=== PATIENT | female | born 1990 | race Caucasian/White ===

== ENCOUNTER 2021-09-05 14:36 | Emergency (ER) | payer SELFPAY ==
[~2021-09-05] VITALS: Ht 162.6 cm; Wt 78.0 kg
[2021-09-05 16:02] LABS: URINE BILIRUBIN - DIPSTICK NEGATIVE (NEGATIVE); URINE BLOOD DIPSTICK NEGATIVE (NEGATIVE); URINE COLOR YELLOW; URINE GLUCOSE - DIPSTICK NEGATIVE (NEGATIVE); URINE KETONE NEGATIVE (NEGATIVE); URINE LEUK ESTERASE NEGATIVE (NEGATIVE); URINE PH 5.5 (4.5-8.0); URINE PROTEIN - DIPSTICK NEGATIVE (NEG-TRACE); URINE SPECIFIC GRAVITY 1.015; URINE UROBILINOGEN - DIPSTICK 0.2 E.U./dL (0.2)
[2021-09-05 16:03] LABS: HEMATOCRIT 36.3 % (37.0-47.0); HEMOGLOBIN 12.5 g/dl (12.0-16.0); IMMATURE GRANULOCYTES 0.3 % (0.0-5.0); MEAN CORPUSCULAR HGB 30.6 pG CALC (26.0-32.0); MEAN CORPUSCULAR HGB CONC 34.4 g/dL CAL (32.0-36.0); NEUT# 6.6 thou/uL (2.00-7.15); RED BLOOD COUNT 4.08 mill/uL (4.20-5.60); RED CELL DISTRI WIDTH 12.7 % (11.5-15.5)
[2021-09-05 16:08] LABS: URINE NITRITE - DIPSTICK NEGATIVE (Negative)
[2021-09-05 16:22] LABS: ALBUMIN 3.5 g/dL (3.2-5.0); ALKALINE PHOSPHATASE 89 u/l (38-126); ANION GAP 14 (6-22 (CALC)); BILIRUBIN, TOTAL 0.7 mg/dL (0.0-1.4); BUN 15 mg/dL (7-17); BUN/CREATININE RATIO 22 (12-20 (CALC)); CARBON DIOXIDE 20 mmol/l (22-30); CHLORIDE 106 mmol/l (95-108); CREATININE 0.7 mg/dL (0.5-1.0); GFR > 60 ML/MIN (>=60 (CALC)); GFR FOR AFR.AMER. > 60 ML/MIN (>=60 (CALC)); POTASSIUM 3.7 mmol/l (3.5-5.1); SGOT/AST 190 u/l (14-36); SODIUM 137 mmol/l (137-146); TOTAL PROTEIN 6.3 g/dL (6.3-8.2)
[2021-09-05 17:23] VITALS: BP 122/62
[2021-09-05] MEDS ORDERED: NAPROXEN EC500 MG PO (17:57)
== END 2021-09-05 18:30 | disposition home or self-care (01) | DRG 552 ==
LOC: ED 14:36
DX: M54.50 Low back pain, unspecified (principal); F15.10 Other stimulant abuse, uncomplicated; I10 Essential (primary) hypertension; J45.909 Unspecified asthma, uncomplicated; F31.9 Bipolar disorder, unspecified; Z87.442 Personal history of urinary calculi

== ENCOUNTER 2023-01-30 16:58 | Observation (INO) | payer MEDICAID ==
[~2023-01-30] VITALS: Ht 162.6 cm; Wt 83.4 kg
[~2023-01-30 16:58] MED LIST: NAPROXEN EC500 MG PO
--- NOTE | 2023-01-30 17:06 | NUR ---
PT ARRIVED VIA EMS WITHOUT PANTS AND UNDERWEAR, EMS PLACED A SLING & SWATH TO LEFT WRIST, PT C/O 10/10 PAIN TO LEFT WRIST AND SAYS THERE IS A CRACK PIPE STUCK IN HER THROAT. PT ASKING VEHEMENTLY FOR PAIN MEDICATION
--- NOTE | 2023-01-30 17:42 | NUR ---
VANCOMYCIN RUNNING, PT ASKED IF SHE COULD HAVE REST OF DILAUDID, TOLD PT THE MEDICATION WAS ALREADY WASTED.
--- NOTE | 2023-01-30 18:02 | NUR ---
REMINDED PT A URINE SAMPLE IS NEEDED AND INSTRUCTED ON USE OF CALL LIGHT. CALL LIGHT IN PATIENT'S LAP
[2023-01-30 18:09] LABS: BASO% 0.3 % (0-3); EOS% 0.8 % (0-8); HEMOGLOBIN 12.7 g/dl (12.0-16.0); IMMATURE GRANULOCYTES 0.2 % (0.0-5.0); LYMPH% 11.8 % (15-41); MEAN CELL VOLUME 91.3 fL CALC (80.0-100.0); MEAN CORPUSCULAR HGB 30.5 pG CALC (26.0-32.0); MEAN CORPUSCULAR HGB CONC 33.4 g/dL CAL (32.0-36.0); MONO% 5.3 % (2-13); NEUT# 10.22 thou/uL (2.00-7.15); NEUT% 81.6 % (42-76); RED BLOOD COUNT 4.16 mill/uL (4.20-5.60); RED CELL DISTRI WIDTH 14.4 % (11.5-15.5)
[2023-01-30 18:24] LABS: ALKALINE PHOSPHATASE 119 u/l (38-126); ANION GAP 12 (6-22 (CALC)); BUN 8 mg/dL (7-17); BUN/CREATININE RATIO 13 (12-20 (CALC)); CARBON DIOXIDE 23 mmol/l (22-30); CHLORIDE 101 mmol/l (95-108); CREATININE 0.6 mg/dL (0.5-1.0); GFR FOR AFR.AMER. > 60 ML/MIN (>=60 (CALC)); GFR OTHER RACES > 60 ML/MIN (>=60 (CALC)); POTASSIUM 3.5 mmol/l (3.5-5.1); SODIUM 132 mmol/l (137-146); TOTAL PROTEIN 6.6 g/dL (6.3-8.2)
[2023-01-30 18:28] LABS: BILIRUBIN, TOTAL 0.2 mg/dL (0.02-1.3); SGOT/AST 34 u/l (14-36)
--- NOTE | 2023-01-30 20:25 | NUR ---
PT IN ROOM ASLEEP. NO DISTRESS NOTED
[2023-01-30 21:07] LABS: URINE BILIRUBIN - DIPSTICK NEGATIVE (NEGATIVE); URINE BLOOD DIPSTICK NEGATIVE (NEGATIVE); URINE CLARITY CLEAR; URINE COLOR YELLOW; URINE GLUCOSE - DIPSTICK NEGATIVE (NEGATIVE); URINE KETONE TRACE mg/dL (NEGATIVE); URINE LEUK ESTERASE TRACE (Negative); URINE NITRITE - DIPSTICK NEGATIVE (Negative); URINE PROTEIN - DIPSTICK NEGATIVE (NEG-TRACE); URINE SPECIFIC GRAVITY >=1.030; URINE UROBILINOGEN - DIPSTICK 0.2 E.U./dL (0.2)
--- NOTE | 2023-01-30 22:26 | NUR ---
REPORT GIVEN TO HUBER WEEMS. CARE RELINQUISHED
--- NOTE | 2023-01-30 22:53 | NUR ---
DR RENTERIA CALLED FOR ADMISSION
--- NOTE | 2023-01-30 23:20 | NUR ---
ROOM ASSIGNMENT [id number]
--- NOTE | 2023-01-31 00:43 | NUR ---
REPORT CALLED TO [facility]
[2023-01-31 01:06] VITALS: BP 122/73
[2023-01-31] MEDS ORDERED: ZYPREXA PO (01:46)
--- NOTE | 2023-01-31 02:17 | NUR ---
JUSTIN ARRIVED TO FLOOR AT 0059, TRANSPORTED BY WHEELCHAIR, REPORT GIVEN BY NURSE DANK, PATIENT ALERT ORIENTED, DROWSY, STEADY GAIT, WALK TO THE BATHROOM TO PEE, PATIENT ORIENTED TO CALL LIGHT SYSTEM, C/O PAIN ON LEFT HAND WILL MECICATE, AWAITING PHARMACY TO VEIFY ORDER, ADMISSION ASSESSMENT COMPLETED, PATIENT NOTED EDEMA ON LEFT HAND AND OPEN WOUND ON LEFT PALM, SCRATCH PRATT ON UPPER ARM AND PUCTURE MITA ON RT HAND, PATIENT PROVIDED CHRIS AND DRINKS, CALL LIGHT IN REACH.
--- NOTE | 2023-01-31 03:27 | NUR ---
PARTIENT WALKING IN THE HALLWAY C/O THROBBING OFTHE LET HAND WILL MEDICATE.
[2023-01-31 03:38] VITALS: BP 136/92
[2023-01-31 06:14] VITALS: BP 140/87
[2023-01-31 15:11] VITALS: BP 121/72
[2023-01-31 18:59] VITALS: BP 129/80
--- NOTE | 2023-01-31 19:17 | NUR ---
SPOKE WITH CARDINAL TALK TO FRANCESCA ABOUT NO ORDERS FOR VANCO TROUGH SATTED WILL LIVE MESSAGE TO FACILITY PHARMACY.
--- NOTE | 2023-01-31 20:00 | NUR ---
REPORT GIVEN BY NURSE SHAY, PATIENT RESTING IN BED, C/O PAIN AND THROBBING OF LEFT HAND REQUESTING PAIN MEDICATION, PATIENT ALERT ORIENTED SALINE LOCK ON RFA, LUNG SOUNDS CLEAR NOT IN DISTRESS, ACTIVE BOWEL SOUNDS LBM 01/30 CALL LIGHT IN REACH.
--- NOTE | 2023-02-01 01:15 | NUR ---
PATIENT C/O PAIN THROBBING LEFT HAND MONICA MEDICATE.
[2023-02-01 04:54] VITALS: BP 120/76
--- NOTE | 2023-02-01 05:11 | NUR ---
paytient c/o anxiety prn ativan given.
[2023-02-01 05:17] LABS: BASO% 0.2 % (0-3); EOS% 1.2 % (0-8); HEMATOCRIT 38.8 % (37.0-47.0); HEMOGLOBIN 12.8 g/dl (12.0-16.0); IMMATURE GRANULOCYTES 0.1 % (0.0-5.0); LYMPH% 20.6 % (15-41); MEAN CELL VOLUME 94.4 fL CALC (80.0-100.0); MEAN CORPUSCULAR HGB 31.1 pG CALC (26.0-32.0); MONO% 8.4 % (2-13); NEUT# 6.25 thou/uL (2.00-7.15); NEUT% 69.5 % (42-76); RED BLOOD COUNT 4.11 mill/uL (4.20-5.60); RED CELL DISTRI WIDTH 14.5 % (11.5-15.5)
[2023-02-01 05:28] LABS: ANION GAP 10 (6-22 (CALC)); BUN 7 mg/dL (7-17); BUN/CREATININE RATIO 12 (12-20 (CALC)); CARBON DIOXIDE 25 mmol/l (22-30); CHLORIDE 104 mmol/l (95-108); CREATININE 0.6 mg/dL (0.5-1.0); GFR FOR AFR.AMER. > 60 ML/MIN (>=60 (CALC)); GFR OTHER RACES > 60 ML/MIN (>=60 (CALC)); MAGNESIUM 1.7 mg/dL (1.6-2.3); POTASSIUM 4.1 mmol/l (3.5-5.1); SODIUM 134 mmol/l (137-146)
[2023-02-01 06:14] VITALS: BP 119/77
--- NOTE | 2023-02-01 07:56 | NUR ---
S: MONA MCALLISTER is a 32 F who presents with CELLULITIS. She has a history of ANT BITES AND DRUG USE. All medications in patient's chart were reviewed. O: VS: BP 119/77 , P 87, RR 20,T 97.2 W 83kg, HT 64IN, Scr=0.6,CrCl= >90ml/min A: Blood culture is pending P: Patient is on ZOSYN 3.375GM Q6H . Vancomycin ordered for pharmacy to dose. Start Vancomycin 1 GRAM IV Q8H. Vancomycin trough is drawn before the 4th dose on 02/01/23 @1030. Vancomycin goal trough is between <10-15 mcg/ml>. Pharmacy will follow and or advise on antibiotics use as needed. SHRADDHA MILLER
--- NOTE | 2023-02-01 08:00 | NUR ---
PT RESTING IN BED EATING BREAKFAST. ASSESSMENT COMPLETED. IV INFILTRATED. ICE PACK PROVIDED. NEW IV ESTALBLISHED 20G RFA. EDUCATED PT IN PLAN OF CARE. PT INDICATED UNDERSTANDING. FALL/SAFTEY PRECAUTION I NPLACE. CALL LIGHT WITHIN REACH
--- NOTE | 2023-02-01 12:20 | NUR ---
PT CRYING IN BED STATING LEFT ARM IS IN PAIN. MEDICATED SEE EMAR REPSOTIONED. FALL/SAFTEY PRECAUTION IN PLACE. CALL LIGHT WITHIN REACH
--- NOTE | 2023-02-01 14:40 | NUR ---
IV ESTABLISHED 20G RAC PT TOLERATED WELL FALL/SAFTEY PRECAUTION IN PLACE, CALL QI PRATER REACH
[2023-02-01 15:25] VITALS: BP 116/70
--- NOTE | 2023-02-01 16:00 | NUR ---
PT VERY ANXIOUS/ RESTLESS IN ROOM. STATING " I NEED ALL THE DEMEROL" COMFORT MEASURES PROVIDED. JUICE/WARM BLANKET. PT REMAINS AGITATEDE. MEDICATED SEE EMAR
--- NOTE | 2023-02-01 16:20 | NUR ---
PT STATES PAIN IN LEFT ARM. REPSOTIONED MEDICATED SEE EMAR FALL/SAFTEY PRECAUITION IN PLACE. CALL LIGHT WITHIN REACH.
--- NOTE | 2023-02-01 16:51 | NUR ---
S: MONA MCALLISTER is a 32 F who presents with cellulitis. All medications in patient's chart were reviewed. O: VS: BP 116/70, P74,T 97.2 W 83.4 kg, HT 162.6cm, Scr=0.6,CrCl= 79ml/min A: Blood culture is pending. P: Patient is on Zosyn 3.375 gm Q6H IV. Vancomycin ordered for pharmacy to dose. Increase Vancomycin to 1.5g IV Q8H. Vancomycin trough is drawn before the 4th dose at 10:30 02/02/2023. Vancomycin goal trough is between 10-15 mcg/ml. Pharmacy will follow and or advise on antibiotics use as needed.
--- NOTE | 2023-02-01 19:43 | NUR ---
BEDSIDE REPORT RECEIVED FROM OFFGOING NURSE. PATIENT RESTING IN BED AND C/O PAIN TO LEFT ARM. ARM POSITIONED ON PILLOWS FOR COMFORT. HEAD TO TOE ASSESSMENT COMPLETED. CALL IGHT AND PERSONAL ITEMS WITHIN REACH.
[2023-02-01 20:39] VITALS: BP 121/73
--- NOTE | 2023-02-02 00:28 | NUR ---
PATIENT RESTING IN BED WITH EYES CLOSED. EASILY AROUSED. MEDICATED FOR PAIN PER REQUEST. CALL LIGHT AND PERSONAL ITEMS WITHIN REACH.
--- NOTE | 2023-02-02 03:22 | NUR ---
PATIENT RESTING IN BED WITH EYES CLOSED. DECLINES TO HAVE BP TAKEN TIMES 2 ATTEMPTS. PATIENT STATING THAT "MY BLOOD PRESSURE IS OK". PATIENT EDUCATED AND THIS CHARTER BOAT OPERATOR OFFERED TO CHECK BP AT SITE OTHER THAN LEFT UPPER EXTREMITY. PATIENT CONTINUED TO DECLINE. CALL LIGHT WITHIN REACH.
[2023-02-02 05:41] LABS: BASO% 0.5 % (0-3); EOS% 2.4 % (0-8); HEMATOCRIT 40.2 % (37.0-47.0); IMMATURE GRANULOCYTES 0.2 % (0.0-5.0); LYMPH% 23.5 % (15-41); MEAN CELL VOLUME 94.6 fL CALC (80.0-100.0); MEAN CORPUSCULAR HGB 30.6 pG CALC (26.0-32.0); MEAN CORPUSCULAR HGB CONC 32.3 g/dL CAL (32.0-36.0); MONO% 8.1 % (2-13); NEUT# 5.75 thou/uL (2.00-7.15); NEUT% 65.3 % (42-76); RED BLOOD COUNT 4.25 mill/uL (4.20-5.60); RED CELL DISTRI WIDTH 14.3 % (11.5-15.5)
[2023-02-02 05:57] LABS: ALBUMIN 3.3 g/dL (3.2-5.0); ALKALINE PHOSPHATASE 93 u/l (38-126); ANION GAP 10 (6-22 (CALC)); BUN 7 mg/dL (7-17); BUN/CREATININE RATIO 10 (12-20 (CALC)); CARBON DIOXIDE 25 mmol/l (22-30); CHLORIDE 106 mmol/l (95-108); CREATININE 0.7 mg/dL (0.5-1.0); GFR FOR AFR.AMER. > 60 ML/MIN (>=60 (CALC)); GFR OTHER RACES > 60 ML/MIN (>=60 (CALC)); MAGNESIUM 1.8 mg/dL (1.6-2.3); SGOT/AST 21 u/l (14-36); SODIUM 136 mmol/l (137-146); TOTAL PROTEIN 6.3 g/dL (6.3-8.2)
[2023-02-02 06:10] LABS: BILIRUBIN, TOTAL 0.3 mg/dL (0.02-1.3)
--- NOTE | 2023-02-02 06:35 | NUR ---
PATIENT DECLINED TO HAVE BP TAKEN THIS AM. CONTINUES TO REST WITH EYES CLOSED. CALL LIGHT WITHIN REACH.
--- NOTE | 2023-02-02 06:48 | NUR ---
patient refused vital signs.
--- NOTE | 2023-02-02 08:00 | NUR ---
PT IN BED WITH HOB, ALERT AND ORIENTED X 3. PT C/O PAIN AT 4/10 ON PAIN SCALE TO LEFT ARM, PRN MEDICATION PT IS REQUESTING NOT DUE FOR ANOTHER HOUR, PT IS AWARE. IV SITE TO RAC INTACT AND CLEAN. PT AMBULATES TO BATHROOM FOR TOILETING NEEDS. PT HAS CALL LIGHT WITHIN REACH AND SAFETY MEASURES IN PLACE.
[2023-02-02] MEDS ORDERED: TRAMADOL HCL50 MG PO (09:25)
[2023-02-02] MEDS ORDERED: VIBRAMYCIN100 M2 PO (09:25)
[2023-02-02] MEDS ORDERED: AMOX/K CLAV875 M1 PO (09:25)
--- NOTE | 2023-02-02 12:02 | NUR ---
S: MONA MCALLISTER is a 32 F who presents with cellulitis. All medications in patient's chart were reviewed. O: VS: BP 121/73 MMHG, P72 BPM, RR18 BPM,T 97F W 83.4kg, HT162.6cm, Scr=0.6,CrCl= 79 ml/min A: Blood culture is pending. P: Patient is on Zosyn 3.375gm Q6H IV. Vancomycin ordered for pharmacy to dose. Continue Vancomycin 1.5GM IV Q8H. Vancomycin trough is drawn before the dose on 02/03/2023 @1030. Vancomycin goal trough is between 10-15 mcg/ml. Pharmacy will follow and or advise on antibiotics use as needed.
--- NOTE | 2023-02-02 12:09 | NUR ---
PT IN BED RESTING, AWAKENED BY VOICE. PT HAS NO C/O MINIMAL PAIN TO LEFT ARM AT 2/10 ON PAIN SCALE AT THIS TIME. ADVISED PT TO ELEVATE ARM ON PILLOW. VANCO ANTBIOTIC INFUSING AT THIS TIME TO [facility] IV SITE. PT HAS CALL LIGHT BLANKA REACH.
--- NOTE | 2023-02-02 13:37 | NUR ---
Discharge instructions given. Patient verbalizes understanding of same. Discharged in stable condition via Ambulatory to Home with staff. All belongings sent with pt.
--- NOTE | 2023-02-02 13:41 | NUR ---
MONA WAS ESCOTRED OUT OF THE BUILDING BY DINAH CANO. PER RACHAEL, MONA ASKED HIM IF HE SMOKED WEED AND HE RESPONDED WITH NO. SHE THEN ASKED HIM IF HE THOUGHT SHE COULD SELL HER TRAMODOL AND GET ANY MONEY FOR THEM, RACHAEL DID NOT RESPOND. PT WAS ESCORTED OUT OF THE HOSPITAL.
== END 2023-02-02 13:34 | disposition home or self-care (01) ==
LOC: ED 16:58 → ED-I 22:40 → ED 23:16 → MS2 23:17
PROVIDERS: Emergency Medicine; Nurse Practitioner Family; ADMIT Internal Medicine; ATTEND Internal Medicine
DX: L03.114 Cellulitis of left upper limb (principal); I10 Essential (primary) hypertension; J45.909 Unspecified asthma, uncomplicated; F31.9 Bipolar disorder, unspecified; S60.562A Insect bite (nonvenomous) of left hand, initial encounter; F17.200 Nicotine dependence, unspecified, uncomplicated; F15.20 Other stimulant dependence, uncomplicated; F12.20 Cannabis dependence, uncomplicated; F14.20 Cocaine dependence, uncomplicated; F13.20 Sedative, hypnotic or anxiolytic dependence, uncomplicated; W57.XXXA Bitten or stung by nonvenomous insect and other nonvenomous arthropods, initial encounter
CPT/HCPCS: G0378; J1650; J2060; J3370

== ENCOUNTER 2023-06-30 01:43 | Emergency (ER) | payer SELFPAY ==
[~2023-06-30] VITALS: Ht 162.6 cm; Wt 95.0 kg
[~2023-06-30 01:43] MED LIST changes: +AMOX/K CLAV875 M1 PO; +TRAMADOL HCL50 MG PO; +VIBRAMYCIN100 M2 PO; +ZYPREXA PO
[2023-06-30 02:39] LABS: BASO% 0.4 % (0-3); EOS% 2.7 % (0-8); HEMATOCRIT 39.2 % (37.0-47.0); HEMOGLOBIN 12.9 g/dl (12.0-16.0); IMMATURE GRANULOCYTES 0.2 % (0.0-5.0); LYMPH% 27.4 % (15-41); MEAN CELL VOLUME 93.3 fL CALC (80.0-100.0); MEAN CORPUSCULAR HGB 30.7 pG CALC (26.0-32.0); MEAN CORPUSCULAR HGB CONC 32.9 g/dL CAL (32.0-36.0); MONO% 7.7 % (2-13); NEUT# 7.48 thou/uL (2.00-7.15); NEUT% 61.6 % (42-76); RED BLOOD COUNT 4.2 mill/uL (4.20-5.60); RED CELL DISTRI WIDTH 12.8 % (11.5-15.5)
[2023-06-30 02:41] LABS: URINE BLOOD DIPSTICK Negative (NEGATIVE); URINE GLUCOSE - DIPSTICK Negative (NEGATIVE); URINE KETONE Negative (NEGATIVE); URINE LEUK ESTERASE Negative (NEGATIVE); URINE NITRITE - DIPSTICK Negative (Negative); URINE PH 5.5 (4.5-8.0); URINE PROTEIN - DIPSTICK Trace mg/dL (NEG-TRACE); URINE SPECIFIC GRAVITY >=1.030; URINE UROBILINOGEN - DIPSTICK 0.2 E.U./dL (0.2)
[2023-06-30 02:42] LABS: URINE COLOR Yellow
[2023-06-30 02:48] VITALS: BP 136/101
[2023-06-30 02:52] LABS: ALBUMIN 4.3 g/dL (3.2-5.0); ALKALINE PHOSPHATASE 70 u/l (38-126); AMYLASE 51 u/l (30-110); ANION GAP 12 (6-22 (CALC)); BILIRUBIN, TOTAL 0.5 mg/dL (0.02-1.3); BUN 9 mg/dL (7-17); BUN/CREATININE RATIO 13 (12-20 (CALC)); CARBON DIOXIDE 29 mmol/l (22-30); CHLORIDE 99 mmol/l (95-108); CREATININE 0.7 mg/dL (0.5-1.0); GFR FOR AFR.AMER. > 60 ML/MIN (>=60 (CALC)); GFR OTHER RACES > 60 ML/MIN (>=60 (CALC)); SGOT/AST 47 u/l (14-36); SODIUM 137 mmol/l (137-146); TOTAL PROTEIN 7.5 g/dL (6.3-8.2)
[2023-06-30 03:01] VITALS: BP 138/58
[2023-06-30 03:16] VITALS: BP 138/92
[2023-06-30 03:48] VITALS: BP 138/92
== END 2023-06-30 04:46 | disposition home or self-care (01) | DRG 897 ==
LOC: ED 01:43
PROVIDERS: Emergency Medicine
DX: F15.10 Other stimulant abuse, uncomplicated (principal); F12.10 Cannabis abuse, uncomplicated; I10 Essential (primary) hypertension; J45.909 Unspecified asthma, uncomplicated; F31.9 Bipolar disorder, unspecified; Z20.822 Contact with and (suspected) exposure to COVID-19